=== PATIENT | female | born 1980 | race Hispanic/Latino ===

== ENCOUNTER 2023-01-11 17:12 | Emergency (ER) | payer OTHER ==
[~2023-01-11] VITALS: Ht 160 cm; Wt 90.7 kg
[2023-01-11 18:06] LABS: BASOPHILS # (AUTO) 0.05 K/uL (0.00-0.20); BASOPHILS % (AUTO) 0.6 % (0.0-5.0); EOSINOPHILS % (AUTO) 1.2 % (0.0-8.0); HEMATOCRIT 39.2 % (36-48); IMMATURE GRANULOCYTE ABSOLUTE 0.03 K/uL (0-1); LYMPHOCYTES # (AUTO) 2.6 K/uL (1.0-4.8); LYMPHOCYTES % (AUTO) 31.3 % (21.0-51.0); MEAN CORPUSCULAR HEMOGLOBIN 31.1 pg (27.0-33.0); MEAN CORPUSCULAR HGB CONC 34.2 g/dL (32.0-36.0); MONOCYTES # (AUTO) 0.7 K/uL (0.1-1.0); MONOCYTES % (AUTO) 7.8 % (3.0-13.0); NEUTROPHILS # (AUTO) 4.9 K/uL (1.8-7.7); NEUTROPHILS % (AUTO) 58.7 % (40.0-77.0); PLATELET COUNT (AUTO) 280 K/uL (130-400); RED BLOOD CELL COUNT(AUTO) 4.31 MIL/uL (4.00-5.50); RED CELL DISTRIBUTION WIDTH 12.5 % (11.0-15.5); WHITE BLOOD COUNT (AUTO) 8.3 K/uL (4.8-10.8)
[2023-01-11 18:17] LABS: CARBON DIOXIDE 27 mmol/L (21-32); CHLORIDE 99 mmol/L (101-111); CREATININE 0.6 mg/dL (0.5-1.5); GLOMERULAR FILTR. RATE CALC 113 mL/min (>90); GLUCOSE,RANDOM 99 mg/dL (70-105); POTASSIUM 3.6 mmol/L (3.5-5.1); SODIUM SERUM 135 mmol/L (136-145); UREA NITROGEN, BLOOD 14 mg/dL (7-18)
[2023-01-11 18:28] LABS: ALANINE AMINOTRANSFERASE 40 U/L (12-78); ALBUMIN 3.4 g/dL (3.5-5.0); ASPARTATE AMINOTRANSFERASE 20 U/L (10-37); BILIRUBIN,TOTAL 0.4 mg/dL (0.2-1.0); CREATINE KINASE, TOTAL 44 U/L (21-232); MYOGLOBIN 25 ng/mL (10-92); TOTAL PROTEIN, SERUM 7.5 g/dL (6.0-8.3)
[2023-01-11 18:30] LABS: APPEARANCE,URINE CLEAR (CLEAR); BILIRUBIN,URINE NEGATIVE (NEGATIVE); COLOR,URINE YELLOW (YELLOW); GLUCOSE, URINE (UA) NEGATIVE (NEGATIVE); KETONES,URINE NEGATIVE (NEGATIVE); LEUKOCYTE ESTERASE ,URINE NEGATIVE Leu/uL (NEGATIVE); NITRATE,URINE NEGATIVE (NEGATIVE); OCCULT BLOOD,URINE NEGATIVE (NEGATIVE); PH,URINE 5.5 (5.0-8.0); PROTEIN,URINE 10 mg/dL (NEGATIVE)
[2023-01-11 18:31] LABS: ADD UA MICROSCOPIC YES
[2023-01-11 18:33] LABS: BACTERIA,URINE FEW /HPF (None Seen); MUCUS,URINE MOD LPF (None Seen); RBC,URINE 0-1 /HPF (0-1); SQUAMOUS EPITHELIAL CELL,UR RARE /HPF (0-2); WBC,URINE 0-1 /HPF (0-1)
[2023-01-11 18:35] LABS: HCG,QUALITATIVE URINE NEGATIVE (NEGATIVE)
[2023-01-11] MEDS ORDERED: FAMO-136 PO (18:50)
[2023-01-11] MEDS ORDERED: MAG/ALUM/SIMETH 30 ML UDCUP PO ONE (19:00)
[2023-01-11] MEDS ORDERED: FAMOTIDINE 20MG VIAL IV ONE (19:00)
[2023-01-11 20:27] VITALS: BP 111/74; PULSE 57; RESP 18; O2SAT 98
[2023-01-11] MEDS ORDERED: ONDANSETRON 4MG INJ IVP ONE (20:30)
== END 2023-01-11 20:40 | disposition home or self-care (01) ==
LOC: EDH 17:12
DX: K21.9 Gastro-esophageal reflux disease without esophagitis (principal); Z98.890 Other specified postprocedural states
CPT/HCPCS: 99285; 96374; 71045; 96375; 82550; 83735; 83874; 84484; 80053; 85025; 81001; 81025; 36415; 93005; J3490; J2405